=== PATIENT | male | born 1980 | race Caucasian/White ===

== ENCOUNTER 2022-03-18 09:39 | Emergency (ER) | payer OTHER ==
[2022-03-18 10:08] VITALS: BP 140/66; PULSE 58; RESP 16; TEMP 98; BMI 28.0
== END 2022-03-18 10:09 | disposition home or self-care (01) ==
LOC: FER 09:39
DX: H00.011 Hordeolum externum right upper eyelid (principal)
CPT/HCPCS: 99281-25